=== PATIENT | female | born 1960 | race Hispanic/Latino ===

== ENCOUNTER → 2017-04-02 | Outpatient (CLI) | payer MEDICARE ==
[~2017-04-02] MED LIST: CYCL10TA7 PO; FLUT16H NASAL; HYDR-4068 PO; MULT-725 PO; PREG100C PO; TOPI25TA48 PO
== END | disposition home or self-care (01) ==
LOC: OIH 03-25 16:14
PROVIDERS: ATTEND Internal Medicine
DX: J44.9 Chronic obstructive pulmonary disease, unspecified (principal)
CPT/HCPCS: 71046

== ENCOUNTER 2018-05-07 13:22 | Emergency (ER) | payer MEDICARE ==
[2018-05-07] MEDS ORDERED: LIDOCAINE HCL 1% 20 ML VIAL ONE (14:07)
== END 2018-05-07 15:36 | disposition home or self-care (01) ==
LOC: EDH 13:22
DX: L03.012 Cellulitis of left finger (principal); L02.512 Cutaneous abscess of left hand; Z85.038 Personal history of other malignant neoplasm of large intestine; Z72.0 Tobacco use
CPT/HCPCS: 26011

== ENCOUNTER → 2018-10-05 | Outpatient (CLI) | payer MEDICARE | END | disposition home or self-care (01) | LOC: OIH 08:29 | PROVIDERS: ATTEND Internal Medicine | DX: J44.9 Chronic obstructive pulmonary disease, unspecified (principal) | CPT/HCPCS: 71046 ==

== ENCOUNTER → 2020-02-29 | Outpatient (CLI) | payer MEDICARE | LOC: OIH 13:06 | PROVIDERS: ATTEND Internal Medicine | DX: J44.9 Chronic obstructive pulmonary disease, unspecified (principal); M47.815 Spondylosis without myelopathy or radiculopathy, thoracolumbar region | CPT/HCPCS: 71046 ==